=== PATIENT | female | born 1970 | race Caucasian/White ===

== ENCOUNTER → 2016-12-10 | Outpatient (CLI) | payer BC | END | disposition home or self-care (01) | LOC: C.PAPS 13:38 | PROVIDERS: ATTEND Family Medicine | DX: Z01.419 Encounter for gynecological examination (general) (routine) without abnormal findings (principal) ==

== ENCOUNTER → 2016-12-10 | Outpatient (CLI) | payer BC ==
[2016-12-10 12:22] LABS: HEMATOCRIT 37.9 % (37-47); MEAN CELL VOLUME 89.2 fL (80-100); MEAN CORPUSCULAR HEMOGLOBIN 29.9 pg (25-34); MEAN CORPUSCULAR HGB CONC 33.5 g/dl (32-36); MEAN PLATELET VOLUME 9.5 fL (7.4-10.4); PLATELET COUNT 351 K/uL (130-400); RED BLOOD COUNT 4.25 M/uL (4.2-5.4); WHITE BLOOD COUNT 9.58 K/uL (4.8-10.8)
[2016-12-10 12:53] LABS: BLOOD UREA NITROGEN 14 mg/dl (7-18); BUN/CREATININE RATIO 19.9 (10-20); CALCIUM 8.6 mg/dl (8.5-10.1); CARBON DIOXIDE 24 mmol/L (21-32); CHLORIDE 107 mmol/L (98-107); CREATININE 0.69 mg/dl (0.60-1.20); GLUCOSE 86 mg/dl (70-99); POTASSIUM 3.5 mmol/L (3.5-5.1); SODIUM 139 mmol/L (136-145)
[2016-12-10 12:57] LABS: CHOLESTEROL 158 mg/dl (0-200); CHOLESTEROL/HDL RATIO 3.8; HDL CHOLESTEROL 42 mg/dl; LDL CHOLESTEROL CALCULATED 73 mg/dl; TRIGLYCERIDES 213 mg/dl (0-150); VERY LOW DENSITY LIPOPROT CALC 43 mg/dl
== END | disposition home or self-care (01) ==
LOC: C.LABPBG 08:30
PROVIDERS: ATTEND Family Medicine
DX: Z00.00 Encounter for general adult medical examination without abnormal findings (principal)

== ENCOUNTER → 2017-03-07 | Outpatient (CLI) | payer OTHER ==
--- NOTE | 2017-03-10 07:44 | MAMMOGRAPHY REPORT ---
BILATERAL DIGITAL SCREENING MAMMOGRAM TOMOSYNTHESIS WITH CAD: 03/07/2017 CLINICAL HISTORY: Routine screening. Patient has no complaints. TECHNIQUE: Breast tomosynthesis in addition to standard 2D mammography was performed. Current study was also evaluated with a Computer Aided Detection (CAD) system. COMPARISON: Comparison is made to exam dated: 11/16/2014 mammogram - [facility]. BREAST COMPOSITION: There are scattered areas of fibroglandular density in both breasts. FINDINGS: No suspicious masses, calcifications, or areas of architectural distortion are noted in ei ther breast. There has been no significant interval change compared to prior exam. IMPRESSION: ACR BI-RADS CATEGORY 1: NEGATIVE There is no mammographic evidence of malignancy. A 1 year screening mammogram is recommended. The pa tient will receive written notification of the results. Approximately 10% of breast cancers are not detected with mammography. A negative mammographic report should not delay biopsy if a clinically suggestive mass is present. Uma Brasher M.D. ah/:03/07/2017 15:41:21 Photograph Inspector: Evelina WEN(José)(M), [facility] [address] letter sent: Normal 1/2 BI-RADS Code: ACR BI-RADS Category 1: Negative
== END | disposition home or self-care (01) ==
LOC: C.MAMM 14:58
PROVIDERS: ATTEND Family Medicine
DX: Z12.31 Encounter for screening mammogram for malignant neoplasm of breast (principal)

== ENCOUNTER 2019-01-04 05:30 | Observation (INO) ==
--- NOTE | 2018-12-09 14:44 | Anesthesiology Consultation ---
Date of Service December 09, 2018 Assessment & Plan (1) Encounter for pre-operative examination: - Check test AM DOS Chart Review Chart Review: Pending: Refer to Additional Notes / Consult section (pending p reop testing (labs)) and Patient seen in Pre Admission Testing Teaching & Discussion Pre-Anesthesia Teaching/Discussion Notes: Instructed NPO after midnight before s urgery,except medications with 15 cc of water. Medication instructions provided according to the PAT guidelines. History Surgery Operation Date: 01/04/19 07:30 Proposed Procedures p Robotic Total Laparoscopic Hysterectomy - Josi Traore MD Height/Weight Height: 5 ft 2 in Weight: 77.3 kg Allergies Allergy/AdvReac Type Severity Reaction Status Date / Time No Known Drug Allergies Allergy Unknown Verified 12/08/18 12:52 Medications Home Medications Medication Instructions Recorded Confirmed Last Taken cholecalciferol (vitamin D3) 2,000 2,000 unit PO QPM tab 11/17/18 12/08/18 Unknown unit tablet multivitamin 1 tab PO QPM 11/17/18 12/08/18 Unknown ibuprofen [Advil] 400 mg PO QID PRN 12/07/18 12/08/18 Unknown Past Medical History Medical History Abnormal uterine bleeding (AUB) Hyperlipidemia per records ASCUS of cervix with negative high risk HPV 12/29/17 History of irritable bowel syndrome Exercise / Class Metabolic Activity II 4-5 Yardwork/Stairs/Walk up hill Past Family History Family History Mother Anxiety Diabetes Hypertension Father Hypertension Kidney stone Lymphoma Prostate cancer age 60's Grandmother Breast cancer Past Surgical History Surgical History H/O tubal ligation History of endometrial biopsy Hx of tonsillectomy S/P section x2, with tubal at last section S/P dilation and curettage multiple Past Anesthesia History No Hx of Anesthesia Complications (except PONV) and No Family Hx of Anesthesia Complications History of PONV No Hx of PONV and Hx of Motion Sickness (occasional ) Social History Smoking Status: Never smoker Do You Dip or Chew Tobacco: No Hx Alcohol Use: Yes alcohol intake frequency: holidays/special occasions only Hx Substance Use: No Review of Systems Rare reflux. Patient denies chest pain, shortness of breath, dyspnea on exertion, cough, wheezing, palpitations. Physical Exam Vital Signs VITALS BP 135/84 P 94 TEMP 98.4 SP02 97%RA RESP 16 PHYSICAL Full neck and c-spine range of motion. Full TMJ range of motion. TMD 2.5 finger breaths Mallampati Score 3 Dentition: intact Lungs: clear throughout to auscultation Cardiac: regular rate and rhythm, no murmurs noted Spine: normal Extremities: no edema
[2018-12-09 15:07] LABS: Basophils # (auto) 0.02 K/uL (0-0.2); Basophils % (auto) 0.2 %; Eosinophils # (auto) 0.12 K/uL (0-0.5); Eosinophils % (auto) 1.3 %; Hematocrit (blood only) 37.4 % (37-47); Hemoglobin 12.8 g/dL (12.0-16.0); Immature Granulocytes # (auto) 0.02 K/uL (0.00-0.02); Immature Granulocytes % (auto) 0.2 %; Lymphocytes # (auto) 2.47 K/uL (1.2-3.4); Lymphocytes % (auto) 26.9 %; Mean Corpuscular Hemoglobin 30.3 pg (25-34); Mean Corpuscular Hgb Conc 34.2 g/dL (32-36); Mean Corpuscular Volume 88.4 fL (80-100); Mean Platelet Volume 9.4 fL (7.4-10.4); Monocytes # (auto) 0.41 K/uL (0.11-0.59); Monocytes % (auto) 4.5 %; Neutrophils # (auto) 6.15 K/uL (1.4-6.5); Neutrophils % (auto) 66.9 %; Platelet Count 299 K/uL (130-400); RDW Coefficient of Variation 13.5 % (11.5-14.5); RDW Standard Deviation 43.7 fL (36.4-46.3); Red Blood Count 4.23 M/uL (4.2-5.4); White Blood Count 9.19 K/uL (4.8-10.8)
[2019-01-04] MEDS ORDERED: LR 15ML/HR IV SCH (06:00)
[2019-01-04] MEDS ORDERED: CEFAZOLIN 2000MG 2,000 MG/15 ML SYR IV SCH (06:00)
[2019-01-04] MEDS ORDERED: LACTATED RINGER'S 1,000 ML IV SCH ×2 (06:00→07:15)
[2019-01-04] MEDS ORDERED: DEXAMETHASONE SOD INJ 4 MG/ML VIAL ONE (06:40)
[2019-01-04] MEDS ORDERED: ROCURONIUM BROMIDE 10 MG/ML 5 ML VIAL ONE ×3 (06:40→08:34)
[2019-01-04] MEDS ORDERED: LIDOCAINE HCL 2% 2 ML VIAL/AMP(20MG/ML) INFIL ONE (06:40)
[2019-01-04] MEDS ORDERED: ONDANSETRON INJ 2 MG/ML 2 ML VIAL ONE ×2 (06:40→07:38)
[2019-01-04] MEDS ORDERED: MIDAZOLAM HCL 1 MG/ML 2ML VIAL ONE (06:40)
[2019-01-04] MEDS ORDERED: PROPOFOL IV EMULSION 10 MG/ML 20 ML VIAL IV ONE ×2 (06:40→09:06)
[2019-01-04] MEDS ORDERED: fentaNYL citrate 100 MCG/2 ML VIAL ONE ×3 (06:40→09:22)
[2019-01-04] MEDS ORDERED: ACETAMINOPHEN 1000 MG/100 ML IV IV ONE (06:50)
--- NOTE | 2019-01-04 07:04 | History & Physical Bridge Note ---
Date of Service January 04, 2019 History & Physical Bridge Note I have examined the patient, reviewed the History & Physical and in the interval since the performance of the History & Physical I have noted the following changes of clinical significance: no changes noted
[2019-01-04] MEDS ORDERED: ACETAMINOPHEN 325 MG TAB PO PRN (07:06)
[2019-01-04] MEDS ORDERED: MEPERIDINE HCL 25 MG/ML CARP IV PRN ×2 (07:06→07:18)
[2019-01-04] MEDS ORDERED: KETOROLAC 30 MG/ML VIAL IV PRN (07:06)
[2019-01-04] MEDS ORDERED: IBUPROFEN 600 MG TAB PO PRN (07:06)
[2019-01-04] MEDS ORDERED: MAGNESIUM HYDROXIDE SUSP 30 ML UDC PO PRN (07:06)
[2019-01-04] MEDS ORDERED: MEPERIDINE HCL 50 MG/ML CARP IV PRN (07:06)
[2019-01-04] MEDS ORDERED: OXYCODONE/ACETAMINOPHEN 5mg/325mg TAB PO PRN ×2 (07:06)
[2019-01-04] MEDS ORDERED: PROMETHAZINE HCL 12.5 MG in SODIUM CHLORIDE 0.9% 50 ML IV PRN ×2 (07:06→07:18)
[2019-01-04] MEDS ORDERED: ONDANSETRON INJ 2 MG/ML 2 ML VIAL IV PRN ×2 (07:06→07:18)
[2019-01-04] MEDS ORDERED: SIMETHICONE 80 MG CHEW PO PRN (07:06)
[2019-01-04] MEDS ORDERED: SCOPOLAMINE 1.5 MG TDSY ONE (07:16)
[2019-01-04] MEDS ORDERED: LABETALOL HCL IV 5 MG/ML 20ML IV PRN (07:18)
[2019-01-04] MEDS ORDERED: ePHEDrine sulfate 50 MG/ML AMP IV PRN (07:18)
[2019-01-04] MEDS ORDERED: SCOPOLAMINE 1.5 MG TDSY TD ONE (07:18)
[2019-01-04] MEDS ORDERED: PHENYLEPHRINE 100MCG/ML 5ML SYR IV PRN (07:18)
[2019-01-04] MEDS ORDERED: HYDROmorphone INJ 2 MG/ML SYR/VIAL IV PRN (07:18)
[2019-01-04] MEDS ORDERED: ATROPINE SULFATE 0.1 MG/ML 10ML SYR IV PRN (07:18)
[2019-01-04] MEDS ORDERED: CHECK SCOPOLAMINE PATCH PLACEMENT SCH (08:00)
[2019-01-04] MEDS ORDERED: METHYLENE BLUE 0.5% 10 ML VIAL ONE (08:16)
[2019-01-04] MEDS ORDERED: DOCUSATE SODIUM 100 MG CAP PO SCH (09:00)
[2019-01-04] MEDS ORDERED: GLYCOPYRROLATE 0.2 MG/ML VIAL ONE (09:04)
[2019-01-04] MEDS ORDERED: TISSEEL FIBRIN SEALANT 10ML TOP ONE (09:04)
[2019-01-04] MEDS ORDERED: NEOSTIGMINE METHYLSULFATE 5 MG/5 ML SYR ONE (09:04)
--- NOTE | 2019-01-04 09:42 | Operative Report ---
PG Post Operative Report Pre & Post Diagnosis Operation Date: 01/04/19 07:30 Pre-Op Diagnosis: Menorrhagia Post-Op Diagnosis: Menorrhagia I identified the patient and participated in the time-out.: Yes Procedure Operation Date: 01/04/19 07:30 Actual Procedures p Robotic Total Laparoscopic Hysterectomy, Bilateral Salpingectomy, Cystoscopy(Not Applicable) - Josi Traore MD Surgeon Josi Traore MD [employer] In[employer] MS3 Mayito Kate Estimated Blood Loss 75 Findings Consistent with Post-Op Diagnosis Severe, dense anterior adhesions consistent with prior bladder flap. Tubal ligation. Ovaries normal. Uterus bivalved after removal and Mirena IUD identified in situ. Specimens Uterus, Cervix, Tubes Anesthesia Type General Complications none Disposition Accompanied Patient To Recovery: Yes Disposition: Recovery Room Description of Procedure The patient was brought to the operating room and placed on the table in dorsal lithotomy position with yellofin stirrups, prepped and draped in standard sterile fashion, and a hard time out was taken prior to proceeding. The bladder was emptied via placement of regalado catheter. A Bitstrips-Care uterine manipulator was placed in the usual manner. Of note, no IUD strings were seen through the stenotic os, and a gentle attempt to remove IUD with allis in a blind manner was unsuccessful. IUD was presumed to remain in situ along with VCare. Attention was then turned to the abdomen where optical entry was made at the umbilicus without complication. The abdomen was insufflated and the patient was placed in steep Trendelenburg. Under direct visualization, right and left lower quadrant ports were placed without complication. Survey of the abdomen revealed findings as noted above: prior tubal ligation, appendix normal, ovaries normal, uterus globular, and dense adhesion of bladder to anterior uterine surface. The robot was then docked and surgery proceeded with the surgeon at the console. The ureter was identified on each side and traced along its course into the pelvis. Each fallopian tube's fimbriated end in turn was elevated, dissected off the mesosalpinx and retrieved via laparoscopic trocar. Each utero-ovarian ligament was ligated and then divided. Each round ligament was ligated and then divided. The anterior leaflets of the broad ligament were dissected to create a bladder flap. However, as the dissection approached the midline, dense adhesive/fibrotic tissue was encountered and it was not possible to fully identify the bladder plane or feel the colpotomy cup through the thickened anterior tissue. Each uterine artery was skeletonized, ligated, and then divided. The surgeon scrubbed back into the bedside to ensure the colpotomy cup was correctly placed, to allow for the safest possible dissection through the dense anterior adhesion. This completed, I returned to the console. Because I was unable to identify a safe plane at the usual location near the colpotomy cup, I elected to amputate the uterine fundus from the cervix at a high anterior location, leaving it attached posteriorly, then follow the cervical canal downwards anteriorly until I could reach the colpotomy cup. Once the cup was safely identified the cervix was dissected away from the back of the bladder, eventually creating the usual vaginal cuff with the bladder mobilized safely downward. Circumferential colpotomy was then completed following the colpotomy cup guide around the posterior aspect as usual. The cervix, uterus and bilateral tubes were then retrieved en bloc via the vagina. The vaginal cuff was then closed using V-Arturo suture in the typical running non-locked fashion. The needle was retrieved through a trocar, and suction/irrigation was then used to remove any debris and ensure good hemostasis at all working sites. After administration of IV Methylene Blue dye, cystoscopy was then utilized to examine the bladder dome which was free of suture or injury. The ureteral orifices were observed until a good strong jet of blue stained urine was seen from each. The bladder was then drained. The robot was then undocked, and abdominal trocar sites were closed using a UR6 at the umbilical fascia and 4-0 monocryl at each of the skin incisions. A dermabond dressing was applied to each site. A final vaginal exam ensured no materials were present in the vagina and the cuff was intact. The patient was then transferred in stable condition to the recovery room. I attest to the content of the Intraoperative Record and any orders documented therein. Any exceptions are noted below.
[2019-01-04] MEDS: fentaNYL citrate 100 MCG/2 ML VIAL IV PRN ×4 (09:57→10:12)
--- NOTE | 2019-01-04 10:34 | Anesthesiology Progress Note ---
Date of Service January 04, 2019 Anesthesia Post Procedure Vital Signs Vital Signs: Temp Pulse Pulse Resp BP BP Pulse Ox 01/04/19 10:20 36.5 C 82 17 105/56 L 95 01/04/19 10:10 71 18 105/60 94 01/04/19 10:00 76 18 112/53 L 98 01/04/19 09:52 36.1 C L 77 18 113/62 98 01/04/19 06:03 37.2 C 82 18 144/76 H 99 Pain Intensity Abdomen: Pain Intensity: 2 Transfer of Care Handoff Completed per policy Notes Mental Status: alert / awake / arousable Patient Amnestic to Procedure: Yes Nausea / Vomiting: adequately controlled Pain: adequately controlled Airway Patency, RR, SpO2: stable & adequate BP & HR: stable & adequate Hydration State: stable & adequate Anesthetic Complications: no major complications apparent and Pt Satisfied with anesthetic care
[2019-01-04 15:02] LABS: Hematocrit (blood only) 35.2 % (37-47)
--- NOTE | 2019-01-05 07:44 | Discharge Summary ---
Date of Service January 05, 2019 Discharge Data Procedures Performed Operation Date: 01/04/19 07:30 Actual Procedures p Robotic Total Laparoscopic Hysterectomy, Bilateral Salpingectomy(Not Applicable) - Josi Traore MD s Cystoscopy(Not Applicable) - Josi Traore MD Hospital Course (1) Menorrhagia: Patient underwent uncomplicated robotic TLH/bilateral salpinge ctomy/cystoscopy. See operative report for details. She met all her postoperative milestones and was discharged home in the evening on POD#0 with the typical #20 percocet for pain and f/u appointments in 2 and 6 weeks.
== END 2019-01-04 17:30 | disposition home or self-care (01) ==
LOC: 4S2 05:30 → ASU 05:30